=== PATIENT | female | born 1965 | race Hispanic/Latino ===

== ENCOUNTER → 2019-02-20 | Day surgery (SDC) | payer MEDICARE ==
[~2019-02-20] MED LIST: ASPIR 8181 MG PO; ATORVASTATIN CA20 MG PO; BYSTOLIC10 MG PO; CLONIDINE HCL0.1 MG PO; DEXTROSE 50% SYRINGE 50 ML IV ONE; FENTANYL CITRATE/PF 100MCG/2 ML INJ ONE; FERROUS SULFAT140 MG PO; GEMFIBROZIL600 MG; GLIPIZIDE10 MG PO; HYDRALAZINE HCL 20 MG/ML VIAL ONE; HYDRALAZINE HCL50 MG PO; ISOSORBIDE1 GM; LISINOPRIL-HCT1 EAC2; MIDAZOLAM HCL 2 MG/2 ML VIAL ONE; OR PHACO EYE KIT ONE; PREOP PHACO EYE KIT ONE; SERTRALINE HCL100 MG PO; SODIUM CHLORIDE 0.9% 500ML 500 ML ONE; VENTOLIN HFA18 GM INH
--- OUTSIDE RECORDS SUMMARY | 2019-02-20 08:15 | XMS REPORT | Clinical Summary ---
Author Author [facility] Address Unknown Phone Unavailable Care Team Providers Care Architectural Renderer Name Role Phone Linnette Smith PCP Allergies No Known Allergies Medications End Date Status Medication Sig Dispensed Refills Start Date Active nebivolol (BYSTOLIC) 10 Take 10 mg by 0 MG tablet mouth daily. Active doxazosin (CARDURA) 4 MG Take 4 mg by 0 tablet mouth nightly. Active isosorbide mononitrate Take 60 mg by 0 (IMDUR) 60 MG 24 hr mouth 2 (two) tablet times daily. Active sertraline (ZOLOFT) 100 Take 100 mg 0 MG tablet by mouth daily. Active sevelamer (RENVELA) 800 Take 800 mg 0 mg tablet by mouth 3 (three) times daily with meals. Active insulin detemir (LEVEMIR) Inject 12 0 100 unit/mL injection Units subcutaneousl y nightly . Active FERROUS SULFATE ORAL Take 65 mg by 0 mouth daily. Active cloNIDine HCl (CATAPRES) Take 0.2 mg 0 0.2 MG tablet by mouth as needed. Active gemfibrozil (LOPID) 600 Take 600 mg 0 MG tablet by mouth 2 (two) times daily. Active calcium carbonate (TUMS) Take 1 tablet 0 500 mg chewable tablet by mouth daily. Active amLODIPine (NORVASC) 10 Take 10 mg by 0 MG tablet mouth daily. Active ergocalciferol (VITAMIN Take 50,000 0 D2) 50,000 unit capsule Units by mouth once a week. Active minoxidil (LONITEN) 2.5 Take 2.5 mg 0 MG tablet by mouth daily. Active Problems Problem Noted Date History of stroke 03/14/2018 Last Assessment & Plan: Residual LUE and LLE weakness. Ambulates with walker at home, uses wheelchair elsewhere. Physical rehab sessions were canceled secondary to insurance issues. She will need to resume PT as soon as possible. Hypertension 03/14/2018 Last Assessment & Plan: Blood pressure management per primary care. Type 2 diabetes mellitus 03/14/2018 Last Assessment & Plan: Continue follow up with primary care for blood glucose management. Obesity (BMI 35.0-39.9 without comorbidity) 03/14/2018 Last Assessment & Plan: BMI is 37. She was encouraged to monitor her po intake and to exercise as tolerated to reach a goal BMI of 35. ESRD (end stage renal disease) on dialysis 12/14/2017 Last Assessment & Plan: Currently on HD through [facility]. Encouraged to lose 15-20 pounds for transplant consideration Pre-transplant evaluation for chronic kidney disease 12/14/2017 Last Assessment & Plan: She will need to lose weight and reach a goal BMI of 35. She will also need to have extensive physical rehab/physcial therapy prior to transplant. She will need CTA prior to transplant. Encounters Care Team Description Date Type Specialty Maxine Gabriel II, MD Lands, Sarah Elizabeth, NP Pre-transplant evaluation for chronic kidney disease (Primary Dx); Obesity (BMI 35.0-39.9 without comorbidity); History of stroke 05/23/2018 Evaluation Transplant Maxine Gabriel II, MD Pre-transplant evaluation for chronic kidney disease 05/23/2018 [facility] Radiology Encounter Maxine Gabriel II, MD No Show 03/14/2018 Evaluation Transplant Maxine Gabriel II, MD O'Mahony, Carey Sullivan MD Pre-transplant evaluation for chronic kidney disease (Primary Dx); History of stroke; Essential hypertension; Obesity (BMI 35.0-39.9 without comorbidity); ESRD (end stage renal disease) on dialysis ([facility]) 03/14/2018 Evaluation Transplant after 02/19/2018 Family History Medical History Relation Name Comments Asthma Father Diabetes Mother Hypertension Mother Relation Name Status Comments Father Mother Social History Date Tobacco Use Types Packs/Day Years Used Never Smoker Smokeless Tobacco: Never Used Sex Assigned at Date Recorded Not on file Industry Job Start Date Occupation Not on file Not on file Not on file Travel End Travel History Travel Start No recent travel history available. Last Filed Vital Signs Time Taken Vital Sign Reading 05/23/2018 11:13 AM CDT Blood Pressure 152/70 05/23/2018 11:13 AM CDT Pulse 68 05/23/2018 11:13 AM CDT Temperature 36.3 C (97.4 F) 05/23/2018 11:13 AM CDT Respiratory Rate 20 - Oxygen Saturation - - Inhaled Oxygen - Concentration 05/23/2018 11:13 AM CDT Weight 89.6 kg (197 lb 8 oz) 05/23/2018 11:13 AM CDT Height 153.7 cm (5' 0.5") 05/23/2018 11:13 AM CDT Body Mass Index 37.94 Plan of Treatment Health Maintenance Due Date Last Done Comments INFLUENZA VACCINE 07/03/2018 Procedures Comments Procedure Name Priority Date/Time Associated Diagnosis OCCULT BLOOD, STOOL Routine 06/01/2018 Pre-transplant evaluation 10:45 AM CDT for chronic kidney disease ESRD (end stage renal disease) on dialysis ([facility]) Hypertensive renal disease Anemia of renal disease Abnormal blood chemistry OCCULT BLOOD, STOOL Routine 06/01/2018 Pre-transplant evaluation 10:45 AM CDT for chronic kidney disease ESRD (end stage renal disease) on dialysis (HCC) Hypertensive renal disease Anemia of renal disease Abnormal blood chemistry US ABDOMEN COMPLETE Routine 05/23/2018 Pre-transplant evaluation 8:35 AM CDT for chronic kidney disease after 02/19/2018 Results * Occult blood, stool (06/01/2018 10:45 AM CDT) Only the most recent of 2 results within the time period is included. Occult blood Negative Negative [facility] Specimen Stool Performing Organization Address City/State/Zipcode Phone Number [facility] [phone] [place] [address] MEDICAL CENTER * US abdomen complete (05/23/2018 8:35 AM CDT) Specimen Narrative Performed At FINAL REPORT Geni Ultrasound of the Abdomen, 05/23/2018. Clinical History:Pretransplant evaluation. Comparison: None. Discussion: Sonographic evaluation of the abdomen is performed. Liver: 14.2 cm in length at the right midclavicular line, normal in size.Normal echogenicity.Homogeneous echotexture.No mass.Main portal vein diameter 1.3 cm. Biliary tree:Common duct 7 mm.No biliary dilatation. Gallbladder:No gallstones.No wall thickening.No pericholecystic fluid.Absent sonographic Rizzo sign. Pancreas: Head, body, and proximal tail unremarkable. Ascites:None. Spleen:10.2 cm in length, normal in size. Kidneys: Right kidney 7.6 cm in length, small in size, with cortical thickness of 1.1 cm.Left kidney 8.6 cm in length, small in size, with cortical thickness of 1.2 cm.Normal cortical echogenicity.No mass.No shadowing calculus.No hydronephrosis. IVC/Aorta:Segments partially seen.Unremarkable. Impression: Small-sized kidneys in keeping with chronic medical renal disease. No acute findings. Signed: Rafael Noel MD Report Verified Date/Time:05/23/2018 16:44:28 Reading Location: [address] Radiology Reading Room Procedure Note Interface, External Ris In - 05/23/2018 4:46 PM CDT FINAL REPORT Ultrasound of the Abdomen, 05/23/2018. Clinical History: Pretransplant evaluation. Comparison: None. Discussion: Sonographic evaluation of the abdomen is performed. Liver: 14.2 cm in length at the right midclavicular line, normal in size. Normal echogenicity. Homogeneous echotexture. No mass. Main portal vein diameter 1.3 cm. Biliary tree: Common duct 7 mm. No biliary dilatation. Gallbladder: No gallstones. No wall thickening. No pericholecystic fluid. Absent sonographic Rizzo sign. Pancreas: Head, body, and proximal tail unremarkable. Ascites: None. Spleen: 10.2 cm in length, normal in size. Kidneys: Right kidney 7.6 cm in length, small in size, with cortical thickness of 1.1 cm. Left kidney 8.6 cm in length, small in size, with cortical thickness of 1.2 cm. Normal cortical echogenicity. No mass. No shadowing calculus. No hydronephrosis. IVC/Aorta: Segments partially seen. Unremarkable. Impression: Small-sized kidneys in keeping with chronic medical renal disease. No acute findings. Signed: Rafael Noel MD Report Verified Date/Time: 05/23/2018 16:44:28 Reading Location: [address] Radiology Reading Room Performing Organization Address City/State/Zipcode Phone Number [facility] RIS after 02/19/2018 Insurance Payer Benefit Subscriber ID Type Phone Address Plan / Group MEDICARE MEDICARE A xxxxxxxxxx Medicare B
--- OUTSIDE RECORDS SUMMARY | 2019-02-20 08:15 | XMS REPORT ---
Author Author [facility] Address Unknown Phone Unavailable Care Team Providers Care Hospital Nurse Name Role Phone Loida LOCKHART Unavailable Unavailable Problems This patient has no known problems. Allergies, Adverse Reactions, Alerts This patient has no known allergies or adverse reactions. Medications This patient has no known medications. Results Test Description Test Time Test Comments Text Results Atomic Results Result Comments OCCULT BLOOD, STOOL 2018-06-01 11:36:00 FECAL OCCULT BLOOD (BEAKER) (test lesu=021) Negative Negative OCCULT BLOOD, [id number] 11:36:00* Test Item Value Reference Range Comments FECAL OCCULT BLOOD (BEAKER) (test vjff=515) Negative Negative U/S, ABDOMINAL, [id number] 16:44:00Reason for Exam:->pre transplant evaluationFINAL REPORT Ultrasound of the Abdomen, 05/23/2018. Clinical History: Pretransplant evaluation. Comparison: None. Discussion:Sonographic evaluation of the abdomen is performed. Liver: [...] No hydronephrosis. IVC/Aorta: Segments partially seen. Unremarkable. Impression:Small-sized kidneys in keeping with chronic medical renal disease. No acute findings. Signed: Clower, Earlene MDReport Verified Date/Time: 05/23/2018 16:44:28 Reading Location: [address] Radiology Reading Room CELLA ZOSTER ANTIBODY, [id number] 15:55:00* Test Item Value Reference Range Comments VARICELLA ZOSTER IGG (AL) (BEAKER) (test jefx=7733) 1.0 Al VARICELLA ZOSTER RESULT INTERPRETATIONS: <=0.8 Al Nonreactive: Presumed non-immune to VZV 0.9-1.0 Al Equivocal >=1.1 Al Reactive: Presumed immune to VZVCYTOMEGALOVIRUS ANTIBODY, [id number] 15:38:00* Test Item Value Reference Range Comments CYTOMEGALOVIRUS IGG ANTIBODY (BEAKER) (test pheh=309) Positive CYTOMEGALOVIRUS ANTIBODY, [id number] 15:38:00* Test Item Value Reference Range Comments CYTOMEGALOVIRUS IGM ANTIBODY (BEAKER) (test ooib=131) Negative EBV-VCA ANTIBODY, [id number] 15:38:00* Test Item Value Reference Range Comments MARY-SUGGS VCA IGG (BEAKER) (test anqe=527) Positive EBV-VCA ANTIBODY, [id number] 15:38:00* Test Item Value Reference Range Comments MARY-SUGGS VCA IGM (BEAKER) (test yopf=928) Negative URINE [id number] 10:23:00* Test Item Value Reference Range Comments CULTURE (BEAKER) (test teyb=1119) ESCHERICHIA COLI 40-49,000 col/mL Escherichia coli Amikacin (test code=1) Ampicillin + Sulbactam (test code=6) Aztreonam (test code=32) Cefepime (test code=51) Cefoxitin (test code=68) Ceftazidime (test code=27) Ceftriaxone (test code=52) Ertapenem (test code=38) Gentamicin (test code=18) Levofloxacin (test code=22) Meropenem (test code=34) Nitrofurantoin (test code=23) Piperacillin + Tazobactam (test code=29) Tetracycline (test code=2) Tobramycin (test code=25) Trimethoprim + Sulfamethoxazole (test code=47) CULTURE (BEAKER) (test reuv=2663) 20-29,000 col/mL Beta-hemolytic streptococcus group B, by serological grouping >100,000 col/mL skin floraRAD, CHEST, 2 [id number] 13:57:00Reason for Exam:->pre transplant evaluationFINAL REPORT Two views chest Discussion: Heart, lungs, bones, soft tissues unremarkable. No effusion or pneumothorax. Signed: Justine Rodrigues Verified Date/Time: 02/01/2018 13:57:35 Reading Location: [facility] C013W Consult Reading Room [id number] 10:49:00* Test Item Value Reference Range Comments RPR SCREEN (BEAKER) (test potr=481) Nonreactive Nonreactive HEMOGLOBIN [id number] 10:46:00* Test Item Value Reference Range Comments HEMOGLOBIN A1C (BEAKER) (test ehpo=534) 5.4 % 4.3-6.1 [id number] 09:53:00* Test Item Value Reference Range Comments PROSTATE SPECIFIC ANTIGEN (BEAKER) (test aury=703) 0.0 ng/mL 0.0-4.0 HEPATITIS B SURFACE [id number] 09:53:00* Test Item Value Reference Range Comments HEPATITIS B SURFACE ANTIBODY (BEAKER) (test qafp=903) < mIU/mL <8.0 HEPATITIS B SURFACE [id number] 09:44:00* Test Item Value Reference Range Comments HEPATITIS B SURFACE ANTIGEN (2) (BEAKER) (test rhlg=1138) Nonreactive Nonreactive HEPATITIS B CORE ANTIBODY, [id number] 09:44:00* Test Item Value Reference Range Comments HEPATITIS B CORE IGM ANTIBODY (BEAKER) (test gkxu=044) Nonreactive Nonreactive HEPATITIS C [id number] 09:44:00* Test Item Value Reference Range Comments HEPATITIS C ANTIBODY (BEAKER) (test irba=245) Nonreactive Nonreactive HIV-1 ANTIGEN WITH HIV-1/2 [id number] 09:44:00* Test Item Value Reference Range Comments HIV-1 ANTIGEN WITH HIV 1\T\2 ANTIBODY (2) (BEAKER) (test qtjj=7483) Nonreactive Nonreactive URINALYSIS W/ [id number] 09:15:00* Test Item Value Reference Range Comments COLOR (BEAKER) (test pgir=026) Yellow CLARITY (BEAKER) (test hyzh=504) Hazy SPECIFIC GRAVITY UA (BEAKER) (test hpxx=980) 1.017 1.001-1.035 PH UA (BEAKER) (test abia=872) 8.5 5.0-8.0 PROTEIN UA (BEAKER) (test bwno=351) 600 mg/dL Negative GLUCOSE UA (BEAKER) (test bwsq=724) 150 mg/dL Negative KETONES UA (BEAKER) (test zmnj=274) Negative Negative BILIRUBIN UA (BEAKER) (test jzfd=352) Negative Negative BLOOD UA (BEAKER) (test wpus=238) Moderate Negative NITRITE UA (BEAKER) (test rqmn=578) Negative Negative LEUKOCYTE ESTERASE UA (BEAKER) (test jjsg=347) Moderate Negative UROBILINOGEN UA (BEAKER) (test eild=089) 0.2 mg/dL 0.2-1.0 RBC UA (BEAKER) (test lfsg=834) 3 /HPF WBC UA (BEAKER) (test nvas=666) 139 /HPF BACTERIA (BEAKER) (test bmnu=291) Occasional SQUAMOUS EPITHELIAL (BEAKER) (test toxu=044) 33 /HPF SOURCE(BEAKER) (test euti=5731) PTH, [id number] 08:55:00* Test Item Value Reference Range Comments PARATHYROID HORMONE INTACT (BEAKER) (test lzva=560) 653.4 pg/mL 8.5-72.5 COMPREHENSIVE METABOLIC [id number] 08:50:00* Test Item Value Reference Range Comments TOTAL PROTEIN (BEAKER) (test idue=610) 8.5 gm/dL 6.0-8.3 ALBUMIN (BEAKER) (test wpbp=0991) 4.4 g/dL 3.5-5.0 ALKALINE PHOSPHATASE (BEAKER) (test swln=404) 181 U/L 40-150 BILIRUBIN TOTAL (BEAKER) (test lfdi=244) 0.5 mg/dL 0.2-1.2 SODIUM (BEAKER) (test avlg=778) 137 meq/L 136-145 POTASSIUM (BEAKER) (test fcfn=399) 4.6 meq/L 3.5-5.1 CHLORIDE (BEAKER) (test muuf=258) 94 meq/L 98-107 CO2 (BEAKER) (test ppzl=485) 27 meq/L 22-29 BLOOD UREA NITROGEN (BEAKER) (test hgjx=182) 33 mg/dL 7-21 CREATININE (BEAKER) (test plwy=845) 6.36 mg/dL 0.57-1.25 GLUCOSE RANDOM (BEAKER) (test lvwd=346) 135 mg/dL 70-105 CALCIUM (BEAKER) (test iekb=239) 10.1 mg/dL 8.4-10.2 AST (SGOT) (BEAKER) (test nitn=503) 16 U/L 5-34 ALT (SGPT) (BEAKER) (test fbhb=025) 13 U/L 6-55 EGFR (BEAKER) (test qlpv=7298) 7 mL/min/1.73 sq m ESTIMATED GFR IS NOT ACCURATE CREATININE CLEARANCE IN PREDICTING GLOMERULAR FILTRATION RATE. ESTIMATED GFR IS NOT APPLICABLE FOR DIALYSIS PATIENTS. URIC [id number] 08:49:00* Test Item Value Reference Range Comments URIC ACID (BEAKER) (test zlpi=503) 4.6 mg/dL 2.6-7.2 [id number] 08:49:00* Test Item Value Reference Range Comments PHOSPHORUS (BEAKER) (test avfq=365) 4.7 mg/dL 2.3-4.7 LIPID [id number] 08:49:00* Test Item Value Reference Range Comments TRIGLYCERIDES (BEAKER) (test ufhc=352) 233 mg/dL CHOLESTEROL (BEAKER) (test hjgu=325) 214 mg/dL HDL CHOLESTEROL (BEAKER) (test bdco=330) 37 mg/dL LDL CHOLESTEROL CALCULATED (BEAKER) (test lrrx=294) 130 mg/dL Triglyceride Reference Range: Low Risk <150 Borderline 150-199 High Risk 200-499 Very High Risk >=500Cholesterol Reference Range: Low Risk <200 Borderline 200-239 High Risk >240HDL Cholesterol Reference Range: Low Risk >=60 High Risk <40LDL Cholesterol Reference Range: Optimal <100 Near Optimal 100-129 Borderline 130-159 High 160-189 Very High >=190 GAMMA GLUTAMYL TRANSFERASE (GGT)2018-02-01 08:49:00* Test Item Value Reference Range Comments GAMMA GLUTAMYL TRANSFERASE (BEAKER) (test zlbk=397) 16 U/L 9-64 LACTATE DEHYDROGENASE (LDH)2018-02-01 08:49:00* Test Item Value Reference Range Comments LACTATE DEHYDROGENASE (BEAKER) (test kygc=856) 296 U/L 125-220 [id number] 08:41:00* Test Item Value Reference Range Comments PROTIME (BEAKER) (test tygp=135) 14.4 seconds 11.7-14.7 INR (BEAKER) (test vtmh=281) 1.1 <=5.9 PARTIAL THROMBOPLASTIN TIME (BEAKER) (test aevt=606) 36.6 seconds 22.5-36.0 RECOMMENDED COUMADIN/WARFARIN INR THERAPY RANGESSTANDARD DOSE: 2.0 - 3.0 Inclu alysia: PROPHYLAXIS for venous thrombosis, systemic embolization; TREATMENT for shari ous thrombosis and/or pulmonary embolus.HIGH RISK: Target INR is 2.5-3.5 for pat ients with mechanical heart valves.CBC W/PLT COUNT & AUTO [id number] 08:27:00* Test Item Value Reference Range Comments WHITE BLOOD CELL COUNT (BEAKER) (test qgwh=697) 5.7 K/ L 3.5-10.5 RED BLOOD CELL COUNT (BEAKER) (test mfjo=132) 3.98 M/ L 3.93-5.22 HEMOGLOBIN (BEAKER) (test suoo=257) 12.3 GM/DL 11.2-15.7 HEMATOCRIT (BEAKER) (test qcgc=328) 38.1 % 34.1-44.9 MEAN CORPUSCULAR VOLUME (BEAKER) (test qink=085) 95.7 fL 79.4-94.8 MEAN CORPUSCULAR HEMOGLOBIN (BEAKER) (test ggjt=807) 30.9 pg 25.6-32.2 MEAN CORPUSCULAR HEMOGLOBIN CONC (BEAKER) (test opcq=058) 32.3 GM/DL 32.2-35.5 RED CELL DISTRIBUTION WIDTH (BEAKER) (test nwyj=887) 17.1 % 11.7-14.4 PLATELET COUNT (BEAKER) (test xead=192) 269 K/CU MM 150-450 MEAN PLATELET VOLUME (BEAKER) (test tlmp=691) 10.6 fL 9.4-12.3 NUCLEATED RED BLOOD CELLS (BEAKER) (test ntqs=508) 0 /100 WBC 0-0 NEUTROPHILS RELATIVE PERCENT (BEAKER) (test jnad=556) 71 % LYMPHOCYTES RELATIVE PERCENT (BEAKER) (test irux=478) 14 % MONOCYTES RELATIVE PERCENT (BEAKER) (test hinh=176) 10 % EOSINOPHILS RELATIVE PERCENT (BEAKER) (test iqea=826) 3 % BASOPHILS RELATIVE PERCENT (BEAKER) (test ohmi=168) 1 % NEUTROPHILS ABSOLUTE COUNT (BEAKER) (test xkwa=972) 4.03 K/ L 1.56-6.13 LYMPHOCYTES ABSOLUTE COUNT (BEAKER) (test hiox=308) 0.81 K/ L 1.18-3.74 MONOCYTES ABSOLUTE COUNT (BEAKER) (test jsuv=985) 0.58 K/ L 0.24-0.36 EOSINOPHILS ABSOLUTE COUNT (BEAKER) (test nelp=141) 0.17 K/ L 0.04-0.36 BASOPHILS ABSOLUTE COUNT (BEAKER) (test uqqo=803) 0.08 K/ L 0.01-0.08 IMMATURE GRANULOCYTES-RELATIVE PERCENT (BEAKER) (test qakt=4480) 1 % 0-1
[2019-02-20 12:00] VITALS: BP 147/68
--- NOTE | 2019-02-28 02:11 | Operative Report ---
DATE OF PROCEDURE: 02/20/2019 SURGEON: Sherwin Castillo MD PREOPERATIVE DIAGNOSIS: Visually significant cataract in the left eye. POSTOPERATIVE DIAGNOSIS: Visually significant cataract in the left eye. PROCEDURE: Phacoemulsification with posterior chamber intraocular lens. ANESTHESIA: MAC. COMPLICATIONS: None. LENS: See SN60WF 19.5 diopter lens. DESCRIPTION OF PROCEDURE: The patient was taken to the operating room, where the patient had tetracaine 0.5% drops placed in the eye. The patient's eye was then prepped and draped in usual sterile ophthalmic fashion. A lid speculum was placed in the eye and a sideport incision was made. A 0.2 mL of 1% lidocaine preservative free was injected in the anterior chamber. Viscoelastic was placed in the anterior chamber and a keratome was used to make a temporal clear corneal incision. A cystotome and Utrata forceps were used to create anterior capsulorrhexis. At this time, it was shown that there was some slight zonular dehiscence. Hydrodissection and hydrodelineation were then performed. The phacoemulsification probe was placed into the eye and the nucleus was carefully phacoemulsified using the divide and conquer technique. There was still evidence of the zonular dehiscence and I was able to remove the entire nucleus. The irrigation aspiration handpiece was then used to remove the residual cortical material. While doing this, I could verify there was more zonular dehiscence. The bag was still in good position and viscoelastic was placed in the capsular bag and See SN60WF 19.5 diopter was placed in the bag. When I tried to position the lens in the bag, there was more evidence of zonular dehiscence and the bag began to get subluxated partially into the vitreous. The lens was still in the posterior chamber after a significant amount of zonular dehiscence now. The patient had Maxitrol ointment and a patch of Coronel Shield placed on the eye, prior to this nylon suture was used to secure the wound. Once the patient was taken into the recovery room, I spoke with the family members to let them know that due to the significant amount of zonular dehiscence , we would see the patient tomorrow, but possibly would need to have an another procedure to remove the IOL and the bag and place in anterior chamber intraocular lens in the future. I will see the patient tomorrow, family members understood, and I told them to call me if they had any questions. MD ARLEEN Troy/NASH /[id number]
== END | disposition home or self-care (01) ==
LOC: OR 08:13
PROVIDERS: ATTEND Ophthalmology
DX: H25.12 Age-related nuclear cataract, left eye (principal); H59.88 Other intraoperative complications of eye and adnexa, not elsewhere classified; E78.5 Hyperlipidemia, unspecified; E11.22 Type 2 diabetes mellitus with diabetic chronic kidney disease; I12.9 Hypertensive chronic kidney disease with stage 1 through stage 4 chronic kidney disease, or unspecified chronic kidney disease; N18.9 Chronic kidney disease, unspecified; M19.90 Unspecified osteoarthritis, unspecified site; Z99.2 Dependence on renal dialysis; Z86.73 Personal history of transient ischemic attack (TIA), and cerebral infarction without residual deficits
CPT/HCPCS: 36415; 66984; 82948; 84132; J0360; J2250; J7040; J7799; V2632

== ENCOUNTER → 2020-09-12 | Outpatient (CLI) | payer MEDICARE, BC ==
[~2020-09-12] MED LIST changes: +AMLODIPINE BESY10 MG PO; +CLONIDINE HCL0.2 MG PO; -DEXTROSE 50% SYRINGE 50 ML IV ONE; -FENTANYL CITRATE/PF 100MCG/2 ML INJ ONE; -GEMFIBROZIL600 MG; +GEMFIBROZIL600 MG PO; -HYDRALAZINE HCL 20 MG/ML VIAL ONE; +ISOSORBIDE MONO60 MG PO; +KEFLEX500 MG PO; +LEVEMIR100 UNIT/1 SC; +LISINOPRIL-HCT1 EACH PO; -MIDAZOLAM HCL 2 MG/2 ML VIAL ONE; +MINOXIDIL2.5 MG PO; +ONDANSETRON ODT8 MG SL; -OR PHACO EYE KIT ONE; -PREOP PHACO EYE KIT ONE; -SODIUM CHLORIDE 0.9% 500ML 500 ML ONE; +TRAVATAN Z5 ML OP; +VITAMIN D1000 UNI1 PO
== END ==
LOC: CT 06:42
PROVIDERS: ATTEND Surgery
DX: N18.6 End stage renal disease (principal); R09.89 Other specified symptoms and signs involving the circulatory and respiratory systems; Z86.73 Personal history of transient ischemic attack (TIA), and cerebral infarction without residual deficits
CPT/HCPCS: 70450; 93880